=== PATIENT | male | born 1940 ===

== ENCOUNTER → 2021-11-30 | Outpatient (CLI) | payer MEDICARE | END | disposition home or self-care (01) | LOC: LAB SHORT 13:40 → PLD 13:40 | DX: Z08 Encounter for follow-up examination after completed treatment for malignant neoplasm (principal); S81.801A Unspecified open wound, right lower leg, initial encounter; L57.8 Other skin changes due to chronic exposure to nonionizing radiation; L85.3 Xerosis cutis; L08.9 Local infection of the skin and subcutaneous tissue, unspecified; R60.0 Localized edema; Z85.828 Personal history of other malignant neoplasm of skin | CPT/HCPCS: 87070; 87077; 87147; 87186; 87205 ==